=== PATIENT | female | born 1995 ===

== ENCOUNTER 2018-07-01 20:24 | Emergency (ER) | payer SELFPAY ==
--- NOTE | 2018-07-01 20:56 | ED ---
Substance Abuse/Use - HPI Summary HPI Summary: This is scribe Hussein Melton documenting for attending Dr. Willie Stacy MD. This patient is a 22 year old F BIBA accompanied by her boyfriend with a chief complaint of EtOH abuse since just [employer]. Per EMS, pt was found unresponsive at her boyfriends room surrounded by vomit. She was consuming vodka and sprite, beer, and no drugs. EMS reports that painful stimuli will wake her up, she was hypertensive en route, and a little apnic. Pt is still unresponsive in the room. HPI is limited due to the patient being unresponsive, level 5 caveat. I, Dr. Stacy, personally performed the services described in this documentation as scribed in my presence and it is both accurate and complete. - History Of Current Complaint Chief Complaint: EDSubstanceAbuse Stated Complaint: ETOH Time Seen by Provider: 07/01/18 20:32 Hx Obtained From: EMS Hx From Patient Unobtainable Due To: Other - unresponsive Ingestion History: Type/Name Of Drug - vodka, beer - Allergies/Home Medications Allergies/Adverse Reactions: Allergies Allergy/AdvReac Type Severity Reaction Status Date / Time No Known Allergies Allergy Verified 09/08/15 19:34 Home Medications: Home Medications NK [No Home Medications Reported] 07/01/18 [History Confirmed 07/01/18] PMH/Surg Hx/FS Hx/Imm Hx - Immunization History Date of Tetanus Vaccine: unknown Infectious Disease History: No Infectious Disease History: Denies: Traveled Outside the [place] in Last 30 Days - Family History Known Family History: Positive: Unknown - level 5 - Social History Alcohol Use: Occasionally Substance Use Type: Reports: Marijuana Smoking Status (MU): Never Smoked Tobacco Review of Systems - ROS Summary Review of Systems Summary: ROS IS LIMITED DUE TO UNRESPONSIVENESS, LEVEL 5 CAVEAT All Other Systems Reviewed And Are Negative: No - Comments Additional Review of Systems Comments: LEVEL 5 Physical Exam - Summary Physical Exam Summary: Appearance: Well-appearing, Well-nourished, lying in bed comfortable Skin: Warm, dry, no obvious rash Eyes: sclera anicteric, no conjunctival pallor ENT: mucous membranes moist Neck: deferred Respiratory: No signs of respiratory distress Cardiovascular: Appears well perfused, pulses are nml Abdomen: deferred Musculoskeletal: Moving all 4 extremities without obvious discomfort Neurological: Awake and alert, mentation is normal, speech is fluent and appropriate Psychiatric: affect is normal, does not appear anxious or depressed Triage Information Reviewed: Yes Vital Signs On Initial Exam: Initial Vitals Temp Pulse Resp BP Pulse Ox 98 F 88 16 100/62 99 07/01/18 20:30 07/01/18 20:30 07/01/18 20:30 07/01/18 20:30 07/01/18 20:30 Vital Signs Reviewed: Yes Completion Of Physical Exam Limited Due To: Level 5 - UNRESPONSIVE Diagnostics - Vital Signs Vital Signs Temp Pulse Resp BP Pulse Ox 07/01/18 20:30 98 F 88 16 100/62 99 - Laboratory Lab Statement: Any lab studies that have been ordered have been reviewed, and results considered in the medical decision making process. Course/Dx - Diagnoses Provider Diagnoses: ETOH abuse Discharge - Sign-Out/Discharge Documenting (check all that apply): Patient Departure - discharge - Discharge Plan Condition: Improved Disposition: HOME Patient Education Materials: Alcohol Intoxication (ED) Referrals: [facility] [Outside] - If Needed - Attestation Statements Document Initiated by Scribe: Yes Documenting Scribe: Hussein Melton Provider For Whom Scribe is Documenting (Include Credential): Willie Stacy MD Scribe Attestation: Hussein Petersen, scribed for Willie Stacy MD on 07/01/18 at 2200.
[2018-07-01 22:25] VITALS: BP 103/66
== END 2018-07-01 22:24 | disposition home or self-care (01) ==
LOC: ED 20:24
DX: F10.129 Alcohol abuse with intoxication, unspecified (principal)
CPT/HCPCS: 99282